=== PATIENT | male | born 1990 | race Caucasian/White ===

== ENCOUNTER 2023-08-11 16:15 | Emergency (ER) | payer BC, SELFPAY ==
[2023-08-11 16:25] VITALS: BP 123/86; PULSE 73; RESP 16; TEMP 36.8; O2SAT 100
[2023-08-11] MEDS: LIDO 1%/EPINEPHRINE 1:100,000 20 ML VIAL 3 ML INFILTRATE (16:55)
--- NOTE | 2023-08-11 17:14 | PC.NURSE ---
CUSTODIAL FOREMAN AT BEDSIDE EXCISING BOTH CYSTS.
--- NOTE | 2023-08-11 17:57 | PC.NURSE ---
CYSTS WERE DRAINED AND SUTURED PER MATERIAL MAN. WOUNDS CLEANED AND DRESSED PER RN. PT TOLERATED WELL.
--- NOTE | 2023-08-11 18:34 | ED.SKABFB ---
HPI - Skin/Abscess/Foreign Bdy General Chief complaint: Skin/Abscess/Foreign Body Stated complaint: CYST ON BACK Time Seen by Provider: 08/11/23 16:39 Source: patient and RN notes reviewed Mode of arrival: ambulatory Limitations: no limitations History of Present Illness HPI narrative: Patient presents today complaining of a cyst on the left upper back that has been there for a very long time. ? States that 4 days ago it started to become red and irritated. He has another large cyst to the right upper back that has also been present for many years that is not currently causing any issues. He has not tried any OTC treatment prior to arrival. Related Data Home Medications Medication Instructions Recorded Confirmed No Home Medications 08/11/23 08/11/23 Allergies Allergy/AdvReac Type Severity Reaction Status Date / Time No Known Allergies Allergy Verified 08/11/23 16:34 Review of Systems Review of Systems: CONSTITUTIONAL: Denies body aches, fever, chills, or sweats. EYES: Denies visual changes, redness, or discharge. ENT: Denies rhinorrhea, congestion, sore throat, or otalgia. CARDIOVASCULAR: Denies chest pain, palpitations, or edema. RESPIRATORY: Denies cough or dyspnea. GASTROINTESTINAL: Denies abdominal pain, nausea, vomiting, or diarrhea. GENITOURINARY: Denies dysuria or hematuria. SKIN: Cyst to back MUSCULOSKELETAL: Denies back pain, joint pain, or myalgia. NEUROLOGIC: Denies headache, numbness, tingling, or weakness. PSYCH: Denies depression or anxiety. [facility] Social History Social History Smoking status: Never smoker Alcohol intake: current Comments At time of signature, I have reviewed and agree with nursing past medical, surgical, social and family history unless otherwise noted. Please see nursing chart for further information. There is no relevant family history pertinent to the presenting complaint Exam Narrative: GENERAL: Well-appearing, well-nourished, and in no acute distress. HEAD: Normocephalic, atraumatic. EYES: EOMI. No redness or drainage. Conjunctivae normal. ENT: Mucous membranes pink and moist. NECK: Normal AROM. CHEST: No respiratory distress. EXTREMITIES: Normal range of motion. No edema. SKIN: Warm, dry, no rash. Capillary refill normal. Normal skin turgor. 1 cyst to the left upper back- approx 2cm round and fluctuant with some mild erythema at the superior edge and mildly tender to palpation. 1 cyst to the right upper back- approx 3cm round and fluctuant. No erythema or induration. Nontender. NEURO: No focal deficits. Alert and oriented x3. Gait steady. PSYCH: Normal affect. No signs of depression or anxiety. Course Course Level of Care: Express Care Visit Vital Signs Vital signs: Vital Signs Temperature 98.3 F 08/11/23 16:25 Pulse Rate 73 08/11/23 16:25 Respiratory Rate 16 08/11/23 16:25 Blood Pressure 123/86 08/11/23 16:25 Pulse Oximetry 100 08/11/23 16:25 Temperature 98.3 F 08/11/23 16:25 Pulse Rate 73 08/11/23 16:25 Respiratory Rate 16 08/11/23 16:25 Blood Pressure 123/86 08/11/23 16:25 Pulse Oximetry 100 08/11/23 16:25 Oxygen Delivery Room Air 08/11/23 16:28 Reviewed Procedures Abscess I/D back: Date of Incision: 08/11/23 Time of Incision: 18:41 Side (if applicable): left (And right) Local Anesthetic: lidocaine 1% and with epi Amount of anesthesia used (mL): 3 Technique: incised with #11 blade Packing used?: none I&D Results: Other (encapsulated white thick material in both) Abcess I&D Additional Comments: Both were cleansed with betadine, incision made and drained. Both sacs removed fully. No thin purulent infected discharged noted. Both closed with 5-0 ethilon sutures, 2 in left, and 3 in right side. Patient tolerated procedure well. MDM - Skin/Abscess/Foreign Bdy MDM N
== END 2023-08-11 17:58 | disposition home or self-care (01) ==
PROVIDERS: Emergency Provider Nurse Practitioner
DX: L72.9 Follicular cyst of the skin and subcutaneous tissue, unspecified (principal)
CPT/HCPCS: 10061; 99212; G0463

== ENCOUNTER 2023-08-20 17:14 | Emergency (ER) | payer BC, SELFPAY ==
[2023-08-20 17:20] VITALS: BP 116/76; PULSE 78; RESP 16; TEMP 37; O2SAT 98
--- NOTE | 2023-08-20 17:22 | ED_ITS ---
HPI - Wound/Laceration General Chief Complaint: Wound/Laceration Stated Complaint: SUTURE REMOVAL Time Seen by Provider: 08/20/23 17:22 Source: patient Mode of arrival: ambulatory Limitations: no limitations History of Present Illness HPI narrative: Salvador is a 33-year-old male patient presenting to the clinic today for a suture removal. He reports he had to cyst removed from his left posterior shoulder and mid upper back on of last week. He has no other concerns at this time. Related Data Home Medications Medication Instructions Recorded Confirmed No Home Medications 08/11/23 08/20/23 Allergies Allergy/AdvReac Type Severity Reaction Status Date / Time No Known Allergies Allergy Verified 08/20/23 17:22 Review of Systems Review of Systems: Pertinent positives per HPI. Patient denies any fever, chills, rash, headache, visual changes, dizziness, cough, runny nose, sore throat, shortness of breath, chest pain, palpitations, nausea, vomiting, diarrhea, constipation, abdominal pain, or any urinary issues. PMFSH Social History Social History Smoking status: Never smoker Alcohol intake: current Comments At the time of my signature, I reviewed and agree with the nursing past medical, surgical, social, and family history. There is no relevant family history pertinent to the patient complaint. Exam Narrative: General: Well-developed, well nourished, in no apparent distress Head: Normocephalic, atraumatic. Cardio: Regular rate and rhythm, s1 and s2 normal, no murmur appreciated. Resp: Clear to auscultation bilaterally, no rhonchi, rales, wheezing or rubs. Integumentary: [place], warm, and dry, 2 sutures were removed to the left posterior shoulder and 3 sutures were removed from the upper back. Patient tolerated well -wounds are healing-no sign of infection Course Course Emergency Course: Portions of this record may have been created with voice recognition software. Level of Care: Express Care Visit Vital Signs Vital signs: Vital signs reviewed MDM - Wound/Laceration MDM Narrative Medical decision making narrative: At the time of visit patient is resting comfortably on the exam table. Patient appears to be nontoxic. Plan: Supportive measures were discussed with the patient and they voiced understanding discharge instructions and agrees to treatment plan. Return precautions reviewed Discharge Plan Discharge Clinical Impression: Encounter for removal of sutures Patient Disposition: Home, Self-Care Condition: Stable Instructions: Antibiotic Form, Stitches Removal (ED) Additional Instructions: Sutures removed in the clinic today Follow-up with your primary care doctor as needed Prescriptions: No Action No Home Medications Follow-up/Referrals: PHYSICIAN,SHOE REPAIRMAN [Primary Care Provider] - Time of Disposition: 17:31 Quality NIHSS Nursing Documentation ED NIHSS nursing documentation: reviewed/agree
== END 2023-08-20 17:34 | disposition home or self-care (01) ==
PROVIDERS: Emergency Provider Nurse Practitioner Family
DX: Z48.02 Encounter for removal of sutures (principal)
CPT/HCPCS: 99211; G0463

== ENCOUNTER 2024-03-15 13:16 | Emergency (ER) | payer BC, SELFPAY ==
[2024-03-15 13:26] VITALS: BP 121/86; PULSE 87; RESP 16; TEMP 37.2; O2SAT 100
--- NOTE | 2024-03-15 13:30 | ED.ABDPAIN ---
HPI - Abdominal Pain General Chief Complaint: Abdominal Pain Stated Complaint: LOW ABD PAIN Source: patient and RN notes reviewed Mode of arrival: ambulatory Limitations: no limitations History of Present Illness HPI narrative: 34 y/o male presented for c/o mid lower abdominal cramping and pain to the suprapubic area with urination and throughout the day. Onset 2 days. Denies urethral discharge, dysuria, hematuria, change in urine stream, nausea, vomiting, abdominal pain, flank pain, constipation, diarrhea, fevers or chills. Denies any concern for an STD at this time. Related Data Home Medications Medication Instructions Recorded Confirmed No Home Medications 08/11/23 03/15/24 Allergies Allergy/AdvReac Type Severity Reaction Status Date / Time No Known Allergies Allergy Verified 03/15/24 13:31 Review of Systems Review of Systems: CONSTITUTIONAL: Denies body aches, fever, chills ENT: Denies rhinorrhea, congestion CARDIOVASCULAR: Denies chest pain, palpitations, or edema. RESPIRATORY: Denies cough or dyspnea. GASTROINTESTINAL: Endorses mid lower abdominal pain, Denies hematochezia, melena, nausea, vomiting, diarrhea. GENITOURINARY: Denies dysuria, hematuria, or CVA tenderness. SKIN: Denies rash MUSCULOSKELETAL: Denies back pain, joint pain NEUROLOGIC: Denies headache, numbness, tingling, or weakness. All systems reviewed & are unremarkable except as noted in HPI and below PMFSH Social History Social History Smoking status: Never smoker Alcohol intake: current Comments At time of signature, I have reviewed and agree with nursing past medical, surgical, social and family history unless otherwise noted. Please see nursing chart for further information. There is no relevant family history pertinent to the presenting complaint Exam Narrative: GENERAL: Well-appearing EYES: EOMI. Conjunctivae normal. ENT: Mucous membranes pink and moist. CHEST: No respiratory distress. Clear to auscultation. HEART: Regular rate and rhythm. No murmur appreciated. Normal peripheral pulses. ABDOMEN: abd soft, nondistended, normal active bowel sounds. Nontender abdomen, No guarding, rebound tenderness, asymmetry EXTREMITIES: Normal range of motion. No edema. SKIN: Warm, dry, no rash. Capillary refill normal. Normal skin turgor. NEURO: No focal deficits. Alert and oriented x3. PSYCH: Normal affect. Course Course Emergency Course: Patient is aware of diagnosis, understands and agrees to treatment plan. Anticipatory guidance given. Patient agrees to follow-up as directed and is aware of reasons to seek care at the emergency department. Portions of this record may have been created with voice recognition software Level of Care: Express Care Visit Vital Signs Vital signs: Vital Signs Temperature 99 F 03/15/24 13:26 Pulse Rate 87 03/15/24 13:26 Respiratory Rate 16 03/15/24 13:26 Blood Pressure 121/86 03/15/24 13:26 Pulse Oximetry 100 03/15/24 13:26 Temperature 99 F 03/15/24 13:26 Pulse Rate 87 03/15/24 13:26 Respiratory Rate 16 03/15/24 13:26 Blood Pressure 121/86 03/15/24 13:26 Pulse Oximetry 100 03/15/24 13:26 MDM - Abdominal Pain MDM Narrative Medical decision making narrative: Discussed physical exam findings and urine results. Patient adamantly denies concern for STD and would not like testing at this time. Discussed at length possible etiologies of symptoms that may require ER visit. He declines ER at this time. Advised supportive measures and signs/symptoms to go to the ER. Pt is appropriate for outpt treatment and f/u. Differential Diagnosis Differential diagnosis: Likely abdominal pain, acute appendicitis, constipation, diverticulitis, gastroenteritis and pancreatitis Discharge Plan Discharge Clinical Impression: Lower abdominal pain Patient Disposition: Home, Self-Care Condition: Stable Instructions: Antibiotic Form, Abdominal Pain (ED) Additional Instructions: Your urine will be sent of for a culture to determine if bacteria is causing your symptoms. If the culture shows a UTI, you will be notified and an antibiotic will be called in for you. you will need to establish and follow up with a PCP, call today to schedule follow-up appointment. Go to the ER for any worsening symptoms or concerns. Prescriptions: No Action No Home Medications Follow-up/Referrals: PHYSICIAN,SUPERVISOR [employer] [Primary Care Provider] - Time of Disposition: 13:39
[2024-03-15 13:35] LABS: EDUAAPPEAR Clear; EDUABILI Negative (Negative); EDUABLOOD Negative (Negative); EDUACOLOR1 Yellow; EDUAGLUCOSE Negative (Negative); EDUAKETONE Negative (Negative); EDUALEUKO Negative (Negative); EDUANITRATE Negative (Negative); EDUAPH 5.5; EDUAPROTEIN Negative (Negative); EDUASPGRAVITY 1.005; EDUAUROBILI 0.2
[2024-03-15 13:47] LABS: EDUAAPPEAR Clear; EDUABILI Negative (Negative); EDUABLOOD Negative (Negative); EDUACOLOR1 Yellow; EDUAGLUCOSE Negative (Negative); EDUAKETONE Negative (Negative); EDUALEUKO Negative (Negative); EDUANITRATE Negative (Negative); EDUAPH 5.5; EDUAPROTEIN Negative (Negative); EDUASPGRAVITY 1.005; EDUAUROBILI 0.2
== END 2024-03-15 13:44 | disposition home or self-care (01) ==
PROVIDERS: Emergency Provider Nurse Practitioner Family
DX: R10.30 Lower abdominal pain, unspecified (principal)
CPT/HCPCS: 81003; 87086; 99213; G0463